=== PATIENT | male | born 1975 | race African-American/Black ===

== ENCOUNTER 2023-03-02 19:52 | Emergency (ER) | payer OTHER ==
[2023-03-02 20:05] VITALS: BP 142/74; PULSE 85; RESP 18; TEMP 98.3; BMI 23.6
[2023-03-02] MEDS ORDERED: DIPHTH,PERTUSS(ACELL),TET 0.5 ML DISP.SYRIN IM ONE ×2 (21:00→22:04)
[2023-03-02 22:53] LABS: BASO % 0.3 % (0-2.0); EOS % 1.3 % (0-4.5); HEMATOCRIT 44.4 % (35.4-49); HEMOGLOBIN 15.1 GM/dL (11.7-16.9); LYMPH % 21.2 % (8-40); MCH 30.3 pg (25.7-33.7); MCHC 34.1 g/dl (32.0-35.9); MEAN CELL VOLUME 88.9 fl (80-96); MEAN PLT VOLUME 8.6 fl (7.5-11.1); MONO % 5.2 % (3.8-10.2); PLATELET COUNT 237 10^3/uL (134-434); RBC 4.99 M/mm3 (4.00-5.60); WHITE BLOOD COUNT 7.8 K/mm3 (4.0-10.0)
[2023-03-02 23:08] LABS: POTASSIUM 3.9 mmol/L (3.5-5.1)
[2023-03-02 23:10] LABS: ALBUMIN 4.5 g/dl (3.4-5.0)
[2023-03-02 23:11] LABS: BLOOD UREA NITROGEN 18.6 mg/dL (7-18)
[2023-03-02 23:14] LABS: CREATININE 1.1 mg/dL (0.55-1.3)
[2023-03-02 23:15] LABS: TOT PROT 8.1 g/dl (6.4-8.2)
[2023-03-02 23:16] LABS: BILIRUBIN,TOTAL 0.8 mg/dL (0.2-1)
[2023-03-03 00:10] LABS: HIV INTERPRETATION NEGATIVE (NEGATIVE)
== END 2023-03-02 23:03 | disposition home or self-care (01) ==
LOC: JERFT 19:52
PROC: 3E0234Z Introduction of Serum, Toxoid and Vaccine into Muscle, Percutaneous Approach (ICD-10-PCS; principal; 2023-03-02)
DX: S61.231A Puncture wound without foreign body of left index finger without damage to nail, initial encounter (principal); W46.0XXA Contact with hypodermic needle, initial encounter; Y99.0 Civilian activity done for income or pay
CPT/HCPCS: 36415; 80053; 85025; 86704; 86803; 87340; 87389; 87517; 90715; 99283-25